=== PATIENT | male | born 1965 | race African-American/Black ===

== ENCOUNTER → 2020-06-08 | Outpatient (CLI) | payer OTHER | LOC: SJCVC 15:46 | PROVIDERS: ATTEND Internal Medicine Cardiovascular Disease | DX: Z01.818 Encounter for other preprocedural examination (principal); R94.31 Abnormal electrocardiogram [ECG] [EKG]; R06.00 Dyspnea, unspecified; I10 Essential (primary) hypertension; E78.00 Pure hypercholesterolemia, unspecified; K21.9 Gastro-esophageal reflux disease without esophagitis; E66.9 Obesity, unspecified; E78.5 Hyperlipidemia, unspecified; E55.9 Vitamin D deficiency, unspecified; Z79.82 Long term (current) use of aspirin; Z79.4 Long term (current) use of insulin; Z79.899 Other long term (current) drug therapy ==

== ENCOUNTER → 2020-06-15 | Outpatient (CLI) | payer OTHER | LOC: SJCVCIMAG 07:30 | PROVIDERS: ATTEND Internal Medicine Cardiovascular Disease | DX: I49.3 Ventricular premature depolarization (principal); R00.0 Tachycardia, unspecified; I11.9 Hypertensive heart disease without heart failure; R94.31 Abnormal electrocardiogram [ECG] [EKG]; R06.00 Dyspnea, unspecified; E78.00 Pure hypercholesterolemia, unspecified; E11.9 Type 2 diabetes mellitus without complications; K21.9 Gastro-esophageal reflux disease without esophagitis; E78.5 Hyperlipidemia, unspecified; E66.9 Obesity, unspecified; F17.200 Nicotine dependence, unspecified, uncomplicated; Z79.4 Long term (current) use of insulin; Z79.82 Long term (current) use of aspirin; Z79.899 Other long term (current) drug therapy ==

== ENCOUNTER → 2021-04-14 | Outpatient (CLI) | payer OTHER ==
[~2021-04-14] MED LIST: ATORVASTATIN CA10 MG PO; CARVEDILOL12.5 MG PO; FLONASE 0.05%50 MCG NARES; HUMULIN R500 UNIT/1 SUBQ; JARDIANCE10 MG PO; OMEPRAZOLE40 MG PO; OZEMPIC1 MG/0.71 SUBQ; REQUIP 1 MG TABL1 M1 PO; VASCEPA1 GM PO; VITAMIN D21250 MCG PO
[2021-04-14 15:17] LABS: ABSOLUTE NEUTROPHILS 2.4 thou/uL (1.4-8.2); BASOPHILS 0.9 % (0.0-2.0); EOSINOPHILS 7.5 % (0.0-3.0); HEMATOCRIT 48.7 % (42.0-52.0); HEMOGLOBIN 15.7 gm/dL (14.0-18.0); LYMPHOCYTES 28.5 % (24.0-44.0); MCH 28.7 pg (26.0-34.0); MCHC 32.1 g/dL (28.0-37.0); MCV 89.3 fL (80.0-100.0); MONOCYTES 6.8 % (1.0-8.0); PLATELET COUNT 247 thou/uL (150-400); POLYS 56.3 % (36.0-66.0); RBC 5.46 mil/uL (4.50-6.00); RDW 14.2 % (10.5-14.5); WBC 4.2 thou/uL (4.0-11.0)
[2021-04-14 15:30] LABS: ALBUMIN 4.4 g/dL (3.4-5.0); CALCIUM 9.5 mg/dL (8.5-10.1); CREATININE 1.5 mg/dL (0.7-1.3); POTASSIUM 5.3 mmol/L (3.5-5.1); TOTAL BILIRUBIN 0.4 mg/dL (0.2-1.0); TOTAL PROTEIN 8.6 g/dL (6.4-8.2)
== END ==
LOC: LAB 13:31
PROVIDERS: ATTEND Surgery
DX: E66.01 Morbid (severe) obesity due to excess calories (principal)

== ENCOUNTER 2021-04-20 09:07 | Inpatient (IN) | payer OTHER ==
[~2021-04-20] VITALS: Ht 188 cm; Wt 119.7 kg
--- NOTE | ~2021-04-20 | O ---
[facility] [address] OPERATIVE REPORT Name: KAITLYN JACKSON Room #: 457-P [facility] IN M.R.#: [id number] Admission: 04/20/21 Attend Phys: Oracio De Paz MD Discharge: 04/25/21 Date of : 69 Report #: [id number] THIS REPORT FOR: cc: ELIZABETH CARLOS MD, Oracio Cooper MD, MD ~ cc: Elizabeth Carlos MD DATE OF SERVICE: 04/20/2021 PREOPERATIVE DIAGNOSES: 1. Morbid obesity. 2. Type 2 diabetes. 3. Hyperlipidemia. 4. Gastroesophageal reflux disease. POSTOPERATIVE DIAGNOSIS: 1. Morbid obesity, type 2 diabetes. 2. Hyperlipidemia. 3. Gastroesophageal reflux disease. PROCEDURE DONE: 1. Laparoscopic Ray-en-Y gastric bypass. 2. Upper GI endoscopy. OPERATING SURGEON: Oracio De Paz MD INDICATIONS FOR THE PROCEDURE: The patient is a 55-year-old male who presented with features of morbid obesity with the above listed comorbidities. The patient was noted to have a weight of 125 kilograms with a BMI of 36 with the above listed comorbidities. The patient was noted to have uncontrolled diabetes and was referred by housekeeper home. The patient was advised laparoscopic Ray-en-Y gastric bypass. The patient showed understanding and agreed to proceed. PROCEDURE IN DETAIL: After explaining to the patient in detail and informed consent was obtained, the patient was identified in the preoperative holding area. The patient was transferred to the operating room and was placed in supine position. Sequential compressive devices were placed for DVT prophylaxis. Preoperative antibiotics were given. After induction of anesthesia, the abdomen was prepped and draped in a sterile fashion. Through a left upper quadrant 1 cm incision and using Optiview technique, peritoneal cavity was entered and pneumoperitoneum was created. Thereafter, under direct vision, another 5 mm trocar was placed in the left mid abdomen, another 12 mm trocar was placed in the right mid abdomen, another 5 mm trocar was placed in the right subcostal region and through a 1 cm incision in the epigastrium, a [address] [address] OPERATIVE REPORT Name: RENETTAKAITLYNCAMILA LYNN Room #: 457-P [facility].#: [id number] Admission: 04/20/21 Attend Phys: Oracio De Paz MD Discharge: 04/25/21 Date of : 69 Report #: [id number] Greg retractor was introduced and the left lobe of the liver was retracted. On initial inspection, I did not see any evidence to suggest a hiatal hernia. I divided the gastrohepatic omentum. I then fired a single white load stapler with Rocio-Strips to divide the small blood vessels and the fatty tissues along the lesser curve at the junction of the proximal and middle third of the stomach. I identified a single green load stapler transversely at this point. The posterior attachments of the stomach and the pancreas were released and the gastrophrenic ligament was divided and the angle of His was mobilized. I then continued to create the gastric pouch by dividing the stomach in a vertical fashion from this point up to the angle of His. I then divided the greater omentum in the middle. I then retracted the transverse mesocolon. The small bowel was identified at the ligament of Treitz. I then measured that downstream for about 50 cm and enterotomy was made at this point and a posterior gastrotomy was made to create a 3 cm anastomosis. The common gastroenterotomy was then closed in 2 layers using 2-0 Vicryl sutures using the EndoStitch device and also using 2-0 V-Loc continuous sutures over the ViSiGi device. I then divided the biliary limb just proximal to the anastomosis. I then measured the Ray limb for about 125 cm downstream. An enterotomy was first made on the biliary limb and on the small bowel at 125 cm. A [id number] jejunojejunostomy was then performed using an Endo-FADI blue load stapler. The common enterotomy was closed with another blue load stapler with Rocio-Strips. The patient's jejunojejunostomy mesenteric defect was closed using 2-0 Ethibond sutures. I then performed an air leak test by insufflation of the stomach using the ViSiGi and by irrigation of fluid along the staple line. There was no leak that was noted. Absolute hemostasis was ensured. The ViSiGi was removed. Approximately about 10 mL of lidocaine, Marcaine mix was instilled into the left hemidiaphragm. The abdomen was then desufflated. Incisions were then closed with 4-0 Monocryl. The 12 mm port site incision was closed with 0 Vicryl for the fascia. Skin was closed with 4-0 Monocryl. Dermabond was applied. The patient was stable at the end of the procedure. The patient was awoken from anesthesia and was transferred to the recovery room in stable condition. Estimated blood loss was approximately 25 mL. CONDITION OF THE PATIENT: Stable. FLUIDS GIVEN: Per anesthesia notes. SPECIMEN SENT: None. COMPLICATIONS: None. [address] [address] OPERATIVE REPORT Name: KAITLYN JACKSON Room #: 457-P [facility] IN M.RSandeep#: [id number] Admission: 04/20/21 Attend Phys: Oracio De Paz MD Discharge: 04/25/21 Date of : 69 Report #: [id number] ANESTHESIA: General anesthesia. By: [id number] Oracio De Paz MD /nt
--- NOTE | ~2021-04-20 | O ---
[facility] [place] [address] OPERATIVE REPORT Name: KAITLYN JACKSON Room #: 457-P [facility] IN M.R.#: [id number] Admission: 04/20/21 Attend Phys: Oracio De Paz MD Discharge: 04/25/21 Date of : 69 Report #: [id number] THIS REPORT FOR: cc: TATUM CARLOS MD, RADHIKA MD Joseph, Sigi P. MD ~ DATE OF SERVICE: 04/22/2021 PREOPERATIVE DIAGNOSIS: Gastrointestinal bleed, status post gastric bypass. POSTOPERATIVE DIAGNOSIS: Normal upper gastrointestinal endoscopy, status post gastric bypass. OPERATIVE PROCEDURE DONE: Upper GI endoscopy. OPERATING SURGEON: Oracio De Paz MD. INDICATIONS FOR THE PROCEDURE: The patient is a 55-year-old male who underwent a Ray-en-Y gastric bypass 2 days ago; however, he was noted to have features of GI bleed and drop in hemoglobin. The patient was advised an upper GI endoscopy to evaluate for any bleeding from the anastomotic site. The patient showed understanding and agreed to proceed. PROCEDURE IN DETAIL: After explaining to the patient in detail, procedure was done in the endoscopy room. After induction of anesthesia, the scope was introduced into the esophagus, was gradually advanced into the gastric pouch. The pouch appeared to be of adequate size. The anastomosis appeared intact and there was no evidence of any bleeding or old blood that was noted within the pouch. I entered the Ray limb without difficulty. There were no features to suggest any blood or bleeding within the Ray limb. I then suctioned out the stomach and scope was removed. The patient was stable at the end of the procedure. The patient was awoken from anesthesia and was transferred to the recovery room in stable condition. ESTIMATED BLOOD LOSS: None. COMPLICATIONS: None. ANESTHESIA: General anesthesia. By: [id number] Oracio De Paz MD /nt
[2021-04-20 12:34] VITALS: BP 132/75
--- NOTE | 2021-04-20 15:44 | EKG ---
[place] [email or web address] [email or web address] [address] ELECTROCARDIOGRAM REPORT Name: KAITLYN JACKSON Room #: [facility]#: [id number] Admission: 04/20/21 Attend Phys: Oracio De Paz MD Discharge: Date of : 69 Report #: [id number] [facility] Test Date: 2021-04-20 Test Time: 10:30:31 Pat Name: KAITLYN JACKSON Department: Room: Gender: Ward Clerk: DAYNA : 1965 Requested By: Oracio De Paz Order Number: [id number] : Jarrell Henson Measurements Intervals [place] Rate: 83 P: 65 SC: 193 QRS: -5 QRSD: 103 T: 34 QT: 354 QTc: 416 Interpretive Statements Sinus rhythm Abnormal R-wave progression, early transition No previous ECG available for comparison Electronically Signed On 04-20-2021 15:44:34 CONSUMER MARKETING ANALYST by Jarrell Henson [email or web address] <ELECTRONICALLY SIGNED> By: Jarrell Henson MD, [facility] 04/20/21 1544 1030 1030 Jarrell Henson MD, FACC /EPI
[2021-04-20 18:02] VITALS: BP 138/88
[2021-04-20 19:00] VITALS: BP 144/95
[2021-04-20 20:39] VITALS: BP 140/87
[2021-04-20 23:19] VITALS: BP 133/75
[2021-04-21 01:29] LABS: HEMATOCRIT 37.4 % (42.0-52.0); HEMOGLOBIN 11.8 gm/dL (14.0-18.0); MCH 28.4 pg (26.0-34.0); MCHC 31.5 g/dL (28.0-37.0); MCV 90.2 fL (80.0-100.0); RBC 4.14 mil/uL (4.50-6.00); RDW 13.8 % (10.5-14.5); WBC 10.2 thou/uL (4.0-11.0)
--- NOTE | 2021-04-21 01:48 | NUR ---
CRIME SCENE INVESTIGATOR ACTIVATED FOR GIB. MARIAH RED BLOOD WITH GOLF BALL SIZE CLOTS NOTED IN BEDPAN. PROVIDER HAD BEEN CALLED PRIOR TO CRIME SCENE INVESTIGATOR WITH ORDERS RECEIVED. SBP IN 90S AT TIMES. PT PLACED IN TRENDELENBERG WITH IVF CONTINUING TO INFUSE. PROVIDER CALLED WITH NEW HGB WITH ADDITIONAL ORDERS RECEIVED. NO ACTIVE BLEEDING NOTED CURRENTLY. SEE RAPID RESPONSE INTERVENTION FOR FURTHER DOCUMENTATION.
--- NOTE | 2021-04-21 05:07 | NUR ---
ASSUMED PT CARE THIS PM. PT IS ALERT AND ORIENTED X4.PT HAS 5 LAP SITES WITH THE DRSG C/D/I. PT TRIED HAVING BM BUT ONLY DARK RED BLOOD WITH CLOTS WERE IN THE BEDPAN. THIS WAS CONTINUOUS FOR ABOUT 20MIN. PT C/O OF BEING LIGHTHEADED. PT'S BP DROPPED TO THE 100'S. DR. BEAUCHAMP WAS CALLED AT 0021 AND WAS ANSWERED BY ANSWERING SERVICE. DR. YO MACE FROM GENERAL SURGERY CALLED BACK AT [address] BARRIENTOS WANTED ME TO PUT A CBC ORDER IN FOR PT. PT'S HGB WAS 11.8 AT 0052. PT WAS PUT IS IN A TRENDENLENBURG POSITION. PT'S BP WENT BACK TO THE 130'S AND PT DID NOT C/O DIZINESS. DR. BEAUCHAMP CALLED AT 03OO AND SAID TO MONITOR PT AND HGB. PT AHS FOELY IN PLACE.PT IS NPO AND ON RA. FALL PRECAUTIONS IN PLACE. WILL CONTINUE TO MONITOR.
[2021-04-21 06:52] VITALS: BP 124/82
[2021-04-21 07:29] VITALS: BP 120/84
[2021-04-21 12:01] LABS: HEMATOCRIT 33.1 % (42.0-52.0); HEMOGLOBIN 10.6 gm/dL (14.0-18.0); MCH 28.6 pg (26.0-34.0); MCHC 32.1 g/dL (28.0-37.0); MCV 89.3 fL (80.0-100.0); RBC 3.71 mil/uL (4.50-6.00); RDW 13.9 % (10.5-14.5); WBC 11.9 thou/uL (4.0-11.0)
[2021-04-21 13:09] LABS: FOLIC ACID 15.9 ng/mL (8.6-58.9)
[2021-04-21 14:40] LABS: ALBUMIN 3.2 g/dL (3.4-5.0); CALCIUM 8.4 mg/dL (8.5-10.1); CREATININE 1.9 mg/dL (0.7-1.3); TOTAL BILIRUBIN 0.2 mg/dL (0.2-1.0); TOTAL PROTEIN 6.6 g/dL (6.4-8.2)
--- NOTE | 2021-04-21 14:53 | NUR ---
ASSUMED PT CARE THIS AM. PT A&OX4, ABLE TO MAKE NEEDS KNOWN. PATIENT REPORTING PAIN THT DECREASES WITH PAIN MEDICATION GIVEN PER EMAR. PATIENT LAP SITES REMIANS DRY AND INTACT. IV REMAINS PATENT, FLUIDS INFUSING. MEDICATIONS GIVEN WITHOUT ISSUE. FALL PRECAUTIONS ARE IN PLACE, CALL LIGHT WITHIN REACH.
[2021-04-21 16:40] VITALS: BP 139/90
[2021-04-21 19:22] VITALS: BP 138/85
[2021-04-22] VITALS (7 sets, daily range): BP systolic 120–151; BP diastolic 69–86
[2021-04-22 04:53] LABS: ABSOLUTE NEUTROPHILS 7.2 thou/uL (1.4-8.2); BASOPHILS 0.6 % (0.0-2.0); EOSINOPHILS 0.1 % (0.0-3.0); HEMATOCRIT 26.4 % (42.0-52.0); HEMOGLOBIN 8.7 gm/dL (14.0-18.0); LYMPHOCYTES 11.1 % (24.0-44.0); MCH 29.4 pg (26.0-34.0); MCHC 32.9 g/dL (28.0-37.0); MCV 89.3 fL (80.0-100.0); MONOCYTES 5.8 % (1.0-8.0); PLATELET COUNT 213 thou/uL (150-400); POLYS 82.4 % (36.0-66.0); RBC 2.96 mil/uL (4.50-6.00); RDW 13.9 % (10.5-14.5); WBC 8.8 thou/uL (4.0-11.0)
[2021-04-22 04:54] LABS: CALCIUM 8.5 mg/dL (8.5-10.1); CREATININE 1.4 mg/dL (0.7-1.3); POTASSIUM 4.8 mmol/L (3.5-5.1)
--- NOTE | 2021-04-22 05:20 | NUR ---
ASSUMED PT CARE THIS CARE PM. PT IS ALERT AND ORIENTED X4. PT HAS 5 LAP SITES WHICH ARE C/D/I. PT WAS ON A BEDPAN EALRY THE SHIFT FOR BM BUT HAD DARK RED BLOOD OF 150ML IN THE FISCHER. PT DID NOT C/O OF LIGHTHEADEDNESS AND BP WAS WITHIN NORMAL RANGE. PT WENT TO USE THE BR WITH HELP OF A NURSE AND PASSED OUT ON THE TOILET. PT REGAINED CONSCIOUSNESS BUT INSISTED ON HAVING A BM BUT THERE WAS ONLY DARK RED BLOOD IN THE TOILET. PT DID NOT C/O OF DIZZINESS. PT'S BP WAS 124/69 AT 0036. CALLED AND WAS ANSWERED BY ANSWERING SERVICE AT 0045 AND WAS TOOLD THE DOCTOR WILL BE INFORMED. STILL WAITING FOR RETURN CALL.
[2021-04-22 11:21] LABS: HEMATOCRIT 23.7 % (42.0-52.0); HEMOGLOBIN 7.9 gm/dL (14.0-18.0)
[2021-04-22 11:35] LABS: PROTIME 10.9 Seconds (10.5-12.1)
--- NOTE | 2021-04-22 15:23 | NUR ---
Assumed pt care at 7am. Pt in bed resting and worried about bloody stool last noc.Assessment completed. vss.Dr Ann notified about pt passing out last non in bathroom. Order noted. 1 unit of prbc given priort to going for egd at 1515 per bed.No verbal c/o. Will continue to monitor.
[2021-04-22 19:30] LABS: HEMOGLOBIN 8.6 gm/dL (14.0-18.0)
--- NOTE | 2021-04-23 05:27 | NUR ---
04/22/21 assumed care @ 1900, in bed awake alert and oriented x3. NS running @ 75cc/hr, up with x1 assist and gait belt to toilet, uses urinal at bedside to void. Acucheck 123, no s/s insulin required. Taken to radiology for CT scan. C/O gas in stomach/colon, which he passess as the evening progresses. Dr Wilson calls after CT and inquires about type of surgery, gives no new orders. Lap site are c/d/i with no redness or swelling noted. x1 bowel movement and urine output noted.
[2021-04-23 05:30] LABS: HEMATOCRIT 24.6 % (42.0-52.0); HEMOGLOBIN 8.2 gm/dL (14.0-18.0)
[2021-04-23 07:15] VITALS: BP 137/82
--- NOTE | 2021-04-23 08:23 | NUR ---
LEFT MESSAGE WITH PERSON AT NUMBER GIVEN, WENT STRAIGHT TO [employer]. ASKED THEY CONTACT US WHEN THEY OBTAIN AUTH FROM INSURANCE, SO THAT WE MAY FACILITATE TRANSPORTATION OR IF THEY WILL PROVIDE TRANSPORT. LEFT THEM KNOW TO CALL BEFORE NOON TODAY, OR CALL MY CELL WITH AN ANSWER. [facility]
[2021-04-23] MEDS ORDERED: HYDROCODONE-ACE15 ML PO ×2 (08:49)
--- NOTE | 2021-04-23 10:06 | NUR ---
PATIENT HAD A LARGE AMOUNT OF BRIGHT RED BLOOD IN STOOL X2 IN ONE HOUR, PHYSICIAN MADE AWARE, NO NEW ORDERS.
[2021-04-23 11:38] LABS: HEMATOCRIT 27.5 % (42.0-52.0); HEMOGLOBIN 8.9 gm/dL (14.0-18.0); MCH 29.2 pg (26.0-34.0); MCHC 32.5 g/dL (28.0-37.0); MCV 89.9 fL (80.0-100.0); RBC 3.06 mil/uL (4.50-6.00); WBC 7.6 thou/uL (4.0-11.0)
--- NOTE | 2021-04-23 14:00 | NUR ---
ASSUMED PT CARE THIS AM. PT A&OX4, ABLE TO MAKE NEEDS KNOWN. PATIENT REPORTING NO PAIN, NUMBNESS, OR TINGLING. PATIENT HAD 3 BLOODY BOWEL MOVEMENTS THIS SHIFT, SURGEON AND HOSPITALIST MADE AWARE AND ADVISED TO CHECK H&H Q8H. PATIENT REPORTING NO DIZZINESS OR WEAKNESS. IV REMAINS PATENT, FLUIDS INFUSING. FALL PRECAUTIONS ARE IN PLACE, CALL LIGHT WITHIN REACH.
[2021-04-23 16:38] VITALS: BP 151/75
[2021-04-23 19:53] VITALS: BP 148/90
[2021-04-23 21:29] LABS: HEMATOCRIT 28.7 % (42.0-52.0); HEMOGLOBIN 9.3 gm/dL (14.0-18.0)
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
--- NOTE | 2021-04-24 06:44 | NUR ---
RECEIVED CARE OF THIS PATIENT AT 0000. PATIENT ALERT AND ORIENTED X4. UP TO BSC WITH ASSIST OF ONE. 5 LAP SITES ON ABD INTACT. C/O PAIN, MED GIVEN. SLEPT MOST OF NIGHT.
[2021-04-24 07:36] VITALS: BP 135/91
[2021-04-24 12:00] LABS: HEMATOCRIT 24.1 % (42.0-52.0)
--- NOTE | 2021-04-24 14:33 | NUR ---
ASSUMED PT CARE THIS AM. PT A&OX4, ABLE TO MAKE NEEDS KNOWN. PATIENT REPORTING ABDOMINAL PAIN THAT DECREASES WITH PAIN MEDICATION GIVEN PER EMAR. PATIENT HAD A BLOODY STOOL THIS AM. PATIENT LAP SITES ARE C/D/I. IV REMAINS PATENT, FLUIDS INFUSING WITHOUT ISSUE. PATIENT REMAINS CONTINENT AND IS AMBULATORY WITH ASSIST TO THE BATHROOM. MEDICATIONS TAKEN WITHOUT ISSUE. PATIENT ON ROOM AIR. PATIENT REMAINS ON TELEMETRY, RUNNING NSR. PATIENT REPORTING THAT HE NEEDED TO LEAVE TO DISCHARGE HOME AROUND 1400, SURGEON MADE AWARE AND TOLD PATIENT IT WOULD BE AMA. PATIENT DENIED WANTED TO ELAVE AMA AND PHYSICIAN SPOKE TO PATIENT OVER THE PHONE ABOUT THE IMPORTANCE OF STAYING IN THE HOSPITAL FOR MEDICAL CARE AT THIS TIME. PATIENT REPORTS UNDERSTANDING. FALL PRECAUTIONS ARE IN PLACE, CALL LIGHT WITHIN REACH.
[2021-04-24 14:40] LABS: HEMATOCRIT 26.2 % (42.0-52.0); HEMOGLOBIN 8.6 gm/dL (14.0-18.0)
[2021-04-24 16:55] VITALS: BP 163/98
[2021-04-24 19:12] VITALS: BP 157/80
[2021-04-24 22:29] LABS: HEMATOCRIT 27.2 % (42.0-52.0); HEMOGLOBIN 8.9 gm/dL (14.0-18.0)
[2021-04-25 03:34] LABS: HEMATOCRIT 27.7 % (42.0-52.0); HEMOGLOBIN 9.4 gm/dL (14.0-18.0)
--- NOTE | 2021-04-25 04:31 | NUR ---
ASSUMED PT CARE THIS PM.PT IS ALERT AND ORIENTED X4. [facility] HAS 5 LAP SITES WHICH ARE C/D/I. PT WAS ON BOWEL PREP FOR COLONOSCOPY TOMORROW AND PT CONTNUOUSLY HAVE BLOODY STOOL. PT WAS INFROMED ABOUT BEING NPO AND VERBALIZED UNDERSTANDING. PT C/O OF PAIN WHICH WAS MANGED BY PRN PAINMEDS. PT DID NOT C/O DIZZINES. PT DID NOT VERBALIZED ANY OTHER CONCERNS,. PT IS ON RA. FALL PRECAUTIONS IN PLACE. WILL CONTINUE TO MONITOR.
[2021-04-25 05:50] VITALS: BP 157/95
[2021-04-25 07:00] VITALS: BP 149/83
[2021-04-25 11:00] VITALS: BP 145/90
[2021-04-25 11:15] LABS: HEMATOCRIT 26.1 % (42.0-52.0); HEMOGLOBIN 8.7 gm/dL (14.0-18.0)
--- NOTE | 2021-04-25 15:16 | NUR ---
at 1442 surgery called for report. colonoscopy showed internal hemorroids and nothing else. stated that he can resume previous diet. 1505 pt back from surgery. VS obtained, pt stated he would like to go home. [address] Hale, returned page immediately. Told Dr. Hale pt would like to go home, she is in agreement as long as Dr. De Paz is ok with it. [address] out [address] De Paz to return call.
--- NOTE | 2021-04-25 15:19 | NUR ---
at approximately 1255 pt left the 4W floor for procedure
[2021-04-25 15:25] VITALS: BP 158/96
[2021-04-25 17:02] VITALS: BP 158/96
[2021-04-25 18:02] VITALS: BP 158/96
--- NOTE | 2021-04-26 15:59 | P ---
[facility] [address] PROCEDURE REPORT Name: KAITLYN JACKSON Room #: 457-P [facility] IN M.R.#: [id number] Admission: 04/20/21 Attend Phys: Oracio De Paz MD Discharge: 04/25/21 Date of : 69 Report #: [id number] THIS REPORT FOR: cc: TATUM CARLOS MD, RADHIKA MD McElhinney, Christian C. MD ~ cc: Oracio De Paz MD, Man Hale MD DATE OF SERVICE: 04/25/2021 DATE OF PROCEDURE: 04/25/2021 PROCEDURE PERFORMED: Colonoscopy. HISTORY OF PRESENT ILLNESS: The patient is a 55-year-old male with recent gastric bypass surgery for obesity. Postoperatively, the patient was passing clots from the rectum. This was thought to be blood from the surgery passing through, later was having some bright red blood per rectum and therefore underwent a nuclear medicine bleeding scan. This was on 04/23/2021, this showed abnormal radiotracer accumulation in the rectum consistent with active bleeding. The patient is scheduled for colonoscopy today. Last colonoscopy was reportedly 5-10 years ago, reportedly negative. He does have a history of intermittent problem with hemorrhoids in the past. His hemoglobin currently is 8.7. He was transfused 1 unit of packed cells on the 04/22 when his hemoglobin dropped to 7.9. He is not requiring transfusion since that time. Plan is for colonoscopy. DESCRIPTION OF PROCEDURE: The risks and benefits of the procedure were explained to the patient, those risks including but not limited to bleeding, perforation and the risk of sedation. He understood these risks and gave informed consent. Sedation was given using propofol per anesthesia. Next, a digital rectal exam was initially performed, which was normal. Next, using a standard Olympus colonoscope, the scope was placed in the patient's anus and advanced under direct vision to the cecum. The overall prep was good. The cecum and ileocecal valve were normal in appearance. Terminal ileum was intubated and normal in appearance. Ascending, transverse, descending and sigmoid colon were all normal. No evidence of bleeding was noted. Rectal mucosa was normal. On retroflexion, small to medium size nonbleeding hemorrhoids were noted. There was no obvious clot or recent stigmata of bleeding. Close examination in the anal canal again showed internal hemorrhoids. The patient has a small external hemorrhoid, nonbleeding, nonthrombosed. No evidence of anal fissure. At this point, the scope was then withdrawn and the procedure terminated. The patient tolerated the procedure well. IMPRESSION: [address] [address] PROCEDURE REPORT Name: RENETTAKAITLYN SHANE Room #: 457-P [facility] IN ..#: [id number] Admission: 04/20/21 Attend Phys: Oracio De Paz MD Discharge: 04/25/21 Date of : 69 Report #: [id number] 1. Small to medium-sized internal hemorrhoids, likely source of recent bleeding. No evidence of bleeding at this time. 2. Small external hemorrhoid. 3. Otherwise, normal colonoscopy. RECOMMENDATIONS: 1. Observe the patient at this point. 2. Repeat colonoscopy in 10 years. 3. If recurrent bleeding, recommend Analpram, high-fiber diet. Thank you for allowing me to participate in his care. <ELECTRONICALLY SIGNED> By: Jean-Pierre Rodriguez MD 04/26/21 1559 1326 14 Jean-Pierre Rodriguez MD /nt
== END 2021-04-25 19:19 | disposition home or self-care (01) | DRG 619 ==
LOC: OR → 4W 17:41 → OR 17:42 → 4W 04-25 19:19
PROVIDERS: Hospitalist; Nurse Practitioner; Physician Assistant Medical; Surgery; ADMIT Surgery; ATTEND Surgery
DX: E66.01 Morbid (severe) obesity due to excess calories (principal); N17.0 Acute kidney failure with tubular necrosis; K92.2 Gastrointestinal hemorrhage, unspecified; D62 Acute posthemorrhagic anemia; E87.1 Hypo-osmolality and hyponatremia; K64.8 Other hemorrhoids; N18.2 Chronic kidney disease, stage 2 (mild); E78.5 Hyperlipidemia, unspecified; K21.9 Gastro-esophageal reflux disease without esophagitis; G25.81 Restless legs syndrome; E11.22 Type 2 diabetes mellitus with diabetic chronic kidney disease; I12.9 Hypertensive chronic kidney disease with stage 1 through stage 4 chronic kidney disease, or unspecified chronic kidney disease; K64.4 Residual hemorrhoidal skin tags; E11.65 Type 2 diabetes mellitus with hyperglycemia; Z20.822 Contact with and (suspected) exposure to COVID-19; Z60.2 Problems related to living alone; Z79.4 Long term (current) use of insulin; Z89.421 Acquired absence of other right toe(s); Z28.21 Immunization not carried out because of patient refusal
CPT/HCPCS: 10045; 10047; 50010; 50101; 50222; 50455; 50555; 51489; 52265; 52266; 53307; 54022; 54118; 55326; 56462; 56525; 56526; 56531; 57092; 58574; 58587; 58588; 58869; 58870; 58872; 58873; 58911; 62110; 62900; 70005